=== PATIENT | female | born 1950 | race Caucasian/White ===

== ENCOUNTER 2024-06-29 14:52 | Emergency (ER) | payer OTHER, SELFPAY ==
[2024-06-29 15:00] VITALS: BP 130/72
--- NOTE | 2024-06-29 15:07 | ED.GENMED ---
ED Provider Triage
<Jessee Stacy PA-C - Last Filed: 06/29/24 15:08>
-
Patient seen by provider in Triage?: Seen in Triage
73-year-old female presents in referral from the urgent care for evaluation of headache and dizziness. They sent her here for a CAT scan of her head. She notes intermittent dizziness over the past several weeks. She vomits occasionally with his
dizziness. No vision change. No unilateral numbness or weakness. Vital signs reviewed through triage. She is ambulatory. Conversing appropriate no facial asymmetry.
CT head ordered. Basic labs and EKG pending as well
Patient received medical screening examination by healthcare provider through triage. She warrants further evaluation
History of Present Illness
<Jessee Satcy PA-C - Last Filed: 06/29/24 15:08>
General
Chief Complaint: Dizziness
Time Seen by Provider: 06/29/24 17:16
<Albert Quintana PA-C - Last Filed: 06/29/24 22:51>
History of Present Illness
History of Present Illness:
Vertigo for the past 3 days. Symptoms are present when lying supine or when changing positions but resolved within 15 to 30 seconds. She did perform the Daya-Hallpike maneuver after watching a YouTube video and states that it felt improved.
Similar episode of vertigo 1 year ago, was evaluated at [facility] and diagnosed with vestibular neuritis, treated with steroids which she did not tolerate. Denies any recent cold or flu type symptoms, no fevers. Denies any current
headache, vision changes, chest pain, shortness of breath.
Review of Systems
<Albert Quintana PA-C - Last Filed: 06/29/24 22:51>
Review of Systems
Allergies reviewed?: Yes
All Other Systems: ROS reviewed and negative except as documented in HPI and ROS
Phy Exam
<Albert Quintana PA-C - Last Filed: 06/29/24 22:51>
Physical Exam
Physical Exam:
GEN: Well appearing, NAD, WDWN
HEENT: Oral mucosa moist, no scleral icterus, no nasal congestion
Cardiac: Regular rate
Lung: No respiratory distress, no tachypnea
MSK: No gross deformity or injuries
Skin: Good color, no pallor or jaundice, no rashes
Neuro: AO x3; CN II-XII grossly intact. BUE strength 5/5 in all stoner, sensation intact and symmetric. BLE strength 5/5 in all stoner, sensation intact and symmetric. Horizontal left beating nystagmus with supine positioning, resolved spontaneously
Psych: Calm, cooperative
Course
<Jessee Stacy PA-C - Last Filed: 06/29/24 15:08>
Orders/Labs/Results
Orders:
Orders
06/29/24 15:06
Electrocardiogram (*1) Urgent
Reason for Study: Vertigo / Dizzy
CT Head W/o Iv Contrast Urgent
Comment:
Reason For Exam: dizziness
EKG- Treatment ONCE
06/29/24 15:19
Complete Blood Count/With Diff Urgent
Comprehensive Metabolic Panel Urgent
Abnormal Lab Results
06/29/24
15:19
Abs Immat Gran (auto) 0.2 H 10^3/uL
(0-0.05)
Absolute Neuts (auto) 6.9 H 10^3/uL
(1.4-6.5)
Immature Gran % 1.6 H %
(0-0.5)
Neutrophils % 75.4 H %
(42.2-75.2)
Lymphocytes % 16.0 L %
(20.5-51.1)
BUN 22 H mg/dl
(7-17)
Glucose 111 H mg/dl
(70-99)
06/29/24 15:19
06/29/24 15:19
Vital Signs
Initial and Last Documented VS:
Initial Vital Signs
Temp Pulse Resp BP Pulse Ox
98.0 F 116 16 130/72 97
06/29/24 15:00 06/29/24 15:00 06/29/24 15:00 06/29/24 15:00 06/29/24 15:00
Last Documented Vital Signs
Temp Pulse Resp BP Pulse Ox
98.0 F 93 18 120/77 96
06/29/24 15:00 06/29/24 17:30 06/29/24 17:30 06/29/24 17:02 06/29/24 17:30
<Albert Quintana PA-C - Last Filed: 06/29/24 22:51>
Orders/Labs/Results
Orders:
Orders
06/29/24 15:06
Electrocardiogram (*1) Urgent
Reason for Study: Vertigo / Dizzy
CT Head W/o Iv Contrast Urgent
Comment:
Reason For Exam: dizziness
EKG- Treatment ONCE
06/29/24 15:19
Complete Blood Count/With Diff Urgent
Comprehensive Metabolic Panel Urgent
Abnormal Lab Results
06/29/24
15:19
Abs Immat Gran (auto) 0.2 H 10^3/uL
(0-0.05)
Absolute Neuts (auto) 6.9 H 10^3/uL
(1.4-6.5)
Immature Gran % 1.6 H %
(0-0.5)
Neutrophils % 75.4 H %
(42.2-75.2)
Lymphocytes % 16.0 L %
(20.5-51.1)
BUN 22 H mg/dl
(7-17)
Glucose 111 H mg/dl
(70-99)
06/29/24 15:19
06/29/24 15:19
Vital Signs
Initial and Last Documented VS:
Initial Vital Signs
Temp Pulse Resp BP Pulse Ox
98.0 F 116 16 130/72 97
06/29/24 15:00 06/29/24 15:00 06/29/24 15:00 06/29/24 15:00 06/29/24 15:00
Last Documented Vital Signs
Temp Pulse Resp BP Pulse Ox
98.0 F 93 18 120/77 96
06/29/24 15:00 06/29/24 17:30 06/29/24 17:30 06/29/24 17:02 06/29/24 17:30
<Albert Quintana PA-C - Last Filed: 06/29/24 22:51>
MDM/Problems Addressed
MDM/Problems Addressed:
Patient has reproduced unilateral horizontal nystagmus on exam and no other focal neurologic deficits. CT of the head is unremarkable. Highly doubt this represents a central process stressors stroke and given the rapid resolution of symptoms and
easy fatigability of nystagmus I doubt vestibular neuritis. Will treat with outpatient physical therapy referral, she has traditionally not tolerated antivertigo medications.
<Albert Quintana PA-C - Last Filed: 06/29/24 22:51>
*Critical Care Note
Total Time (30-74mins, 75-104mins- exclusive of procedures): Not Applicable
ED Attending Note
<Jessee Stacy PA-C - Last Filed: 06/29/24 15:08>
-
Portions of this chart may have been created with voice recognition software.� Occasional wrong word or��sound alike� substitutions may have occurred due to the inherent limitations of voice recognition software.
Discharge Plan
Departure
Patient Disposition: Home (Routine Discharge)
Date of Disposition: 06/29/24
Time of Disposition: 17:39
Patient with high blood pressure during this ER visit?: No
Discharge Problem:
Benign paroxysmal positional vertigo
Instructions: Vertigo (a Type of Dizziness) (DC)
Activity Restrictions/Additional Instructions:
Follow-up with outpatient vestibular therapy if your symptoms worsen
Interventions
Interventions:
*Risk Screen - Suicide Last Done: 06/29/24 15:00
*General Assessment Last Done: 06/29/24 15:00
*Neglect/Abuse Screening Last Done: 06/29/24 17:09
ED- Fall Risk Assessment Last Done: 06/29/24 18:13
*ED COVID-19 Vaccine History Last Done: 06/29/24 15:00
*Nursing Disposition Last Done: 06/29/24 18:13
ED- Neurological Assessment Last Done: 06/29/24 17:09
ED- Cardiac Assessment Last Done: 06/29/24 18:13
ED Swallowing Screen Last Done: 06/29/24 18:13
Discharge Date and Time
Discharge Date/Time: 06/29/24 18:14
Print Language: PASHTO
[2024-06-29 15:34] LABS: % Eosinophils 0.4 % (0-6); % Immature Granulocytes 1.6 % (0-0.5); % Monocytes 5.6 % (1.7-9.3); % Neutrophils 75.4 % (42.2-75.2); Absolute Basophils 0.1 10^3/uL (0-0.2); Absolute Immature Granulocytes 0.2 10^3/uL (0-0.05); Absolute Lymphocytes 1.5 10^3/uL (1.2-3.4); Absolute Monocytes 0.5 10^3/uL (0.1-0.6); Absolute Neutrophils 6.9 10^3/uL (1.4-6.5); Hematocrit 41.3 % (37.0-47.0); Hemoglobin 13.8 g/dL (12.0-16.0); Mean Corp Hgb Conc. 33.4 g/dL (33.0-37.0); Mean Corpuscular Hgb 29.5 pg (27.0-31.0); Mean Corpuscular Volume 88.2 fL (81.0-99.0); Mean Platelet Volume 9.5 fL (7.4-10.4); Nucleated Red Blood Cells % 0 %; Platelet Count 348 10^3/uL (130-400); Red Blood Cell Count 4.68 10^6/uL (4.20-5.40); Red Cell Dist. Width 12.8 % (11.5-14.5); White Blood Cell Count 9.2 10^3/uL (4.8-10.8)
[2024-06-29 15:47] LABS: ALT (SGPT) 15 U/L (0-35); AST (SGOT) 22 U/L (14-36); Albumin 4.7 g/dl (3.5-5.0); Alkaline Phosphatase 92 U/L (38-126); Blood Urea Nitrogen 22 mg/dl (7-17); Calcium 9.6 mg/dl (8.4-10.2); Carbon Dioxide 28 mmol/L (22-30); Chloride 101 mmol/L (98-107); Glucose 111 mg/dl (70-99); Potassium 4.2 mmol/L (3.5-5.1); Sodium 139 mmol/L (135-145); Total Bilirubin 0.6 mg/dl (0.2-1.3); Total Protein 6.9 g/dl (6.3-8.2); eGFR 59.12
[2024-06-29 16:57] VITALS: BP 127/68
[2024-06-29 17:00] VITALS: BP 120/77; BP 127/68; BP 142/81; BP 145/89; PULSE 113; PULSE 118; PULSE 126
[2024-06-29 17:02] VITALS: BP 120/77
[2024-06-29 17:03] VITALS: BMI 22.9
== END 2024-06-29 18:14 | disposition home or self-care (01) ==
LOC: EMR 14:52
PROVIDERS: Physician Assistant; EMERGENCY PHYSICIAN Emergency Medicine; FAMILY PHYSICIAN Family Medicine
DX: H81.10 Benign paroxysmal vertigo, unspecified ear (principal); H55.09 Other forms of nystagmus
CPT/HCPCS: 99284; 70450; 80053; 85025; 93005